=== PATIENT | female | born 1985 | race Two or more races ===

== ENCOUNTER 2023-11-28 00:57 | Emergency (ER) | payer BC ==
[~2023-11-28] VITALS: Ht 160 cm; Wt 91.2 kg
[2023-11-28] MEDS ORDERED: CIPR10DR RIGHT EAR (01:09)
[2023-11-28] MEDS: acetaminophen 325mg tablet PO ONE (01:32)
[2023-11-28 03:14] VITALS: BP 125/63; PULSE 75; RESP 16; TEMP 98.3; O2SAT 98
== END 2023-11-28 01:34 | disposition home or self-care (01) ==
LOC: ER 00:58
DX: H60.91 Unspecified otitis externa, right ear (principal)
CPT/HCPCS: 99283